=== PATIENT | male | born 1965 | race Caucasian/White ===

== ENCOUNTER 2024-08-09 19:18 | Emergency (ER) | payer OTHER, SELFPAY ==
[2024-08-09] VITALS (14 sets, daily range): BP systolic 98–127; BP diastolic 56–86; PULSE 66–76; RESP 12–22; TEMP 37.7; O2SAT 95–97
--- NOTE | ~2024-08-09 | CT_ITS ---
History: Increased weakness and slurred speech with history of CVA PROCEDURE: CT head without contrast. COMPARISON: None TECHNIQUE: Axial imaging of the head performed from the skull base to the vertex without IV contrast. Sagittal a nd coronal reformations obtained. Examination is markedly limited by motion artifact DLP: 1362 mGy-cm FINDINGS: Encephalomalacia and gliosis is identified within the left cerebral hemisphere with ex vacuo dilatati on of the left lateral ventricle. There is no mass, mass effect or midline shift. There is no abnormal extra-axial fluid collection or intracranial hemorrhage. Mucoperiosteal thickening within the bilateral maxillary, ethmoid and sphenoid sinuses. 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 No acute displaced fractures within the overlying cranium. Impression: No acute intracranial hemorrhage or suspicious mass effect. Evidence of prior cerebral infarction, as detailed above. Reviewed, dictated and finalized at location A. CUTTER Impression: No acute intracranial hemorrhage or suspicious mass effect. Evidence of prior cerebral infarction, as detailed above.
--- NOTE | ~2024-08-09 | CT_ITS ---
CTA brain carotid Ordering provider: Maury Connelly History: . Worsened R sided weakness. Hx of prior cva . Comparison: None. Technique: CT angiogram head and neck was performed following timed intravenous injection of contrast . Thin slice axial images and reformatted coronal images were obtained. Three dimensional reformatted images of the brain were also obtained using a [employer] workstation. DLP: 1161 mGy-cm FINDINGS: HEAD: --RIGHT SIDED ANTERIOR AND MIDDLE CEREBRAL ARTERIES AND BRANCHES: Normal caliber and contour. LEFT-SIDED ANTERIOR AND MIDDLE CEREBRAL ARTERIES AND BRANCHES: Asymmetrically smaller than the right, consistent with patient's history of prior cerebral infarction. --INTERNAL CAROTID ARTERIES: Limited visualization secondary to significant motion artifact. --BASILAR ARTERY AND BRANCHES: Limited visualization secondary to motion artifact --POSTERIOR CEREBRAL ARTERIES: Limited visualization secondary to motion artifact --POSTERIOR COMMUNICATING ARTERIES: Small in caliber but patent bilaterally --ANEURYSM: None visualized. --BRAIN: Please refer to report of CT head performed the same day. --BONES AND SUPERFICIAL SOFT TISSUES: Please refer to report of CT head performed the same day. --PARANASAL SINUSES AND MASTOIDS: Please refer to report of CT head done the same day. NECK: --RIGHT CERVICAL CAROTID SYSTEM: Mild atheromatous disease of the carotid bulb and proximal internal carotid artery without significant stenosis. Percent stenosis per NASCET criteria is 0%. No carotid dissection. --LEFT CERVICAL CAROTID SYSTEM: Just distal to the carotid bulb is complete occlusion of the left int ernal carotid artery. Only thready collateralization is appreciated. No flow is identified within the carotid siphon, but small vessel reconstitution is visualized within the [place] (as descri bed above). Percent stenosis per NASCET criteria is 100%. --VERTEBRAL ARTERIES: Patent. Normal caliber and contour. --VISUALIZED AORTIC ARCH AND BRANCHING VESSELS: Mild atheromatous disease but no significant stenosis . --SOFT TISSUES: Unremarkable --CERVICAL SPINE: Age advanced degenerative disease. IMPRESSION: Occlusion of the left internal carotid artery just distal to the carotid bulb without a carotid ring sign, which would denote an acute occlusion. [place] is patent, with asymmetrically smaller vasculature on the left in comparison to the right. These findings were discussed with Dr. Connelly at 9:00 PM on 08/09/2024 Reviewed, dictated and finalized at location A. ER MACHINE OPERATOR IMPRESSION: Occlusion of the left internal carotid artery just distal to the carotid bulb w ithout a carotid ring sign, which would denote an acute occlusion. [place] is patent, with asymmetrically smaller vasculature on the left in comparison to the right. These findings were discussed with Dr. Connelly at 9:00 PM on 08/09/2024
--- NOTE | ~2024-08-09 | XR_ITS ---
CHEST RADIOGRAPH CLINICAL HISTORY: sob, cough, hx cva . COMPARISON: 06/19/2015 TECHNIQUE: Single portable view of the chest. FINDINGS The cardiomediastinal silhouette is partially obscured. Hazy opacification of the left hemidiaphragm suggesting a small left-sided pleural effusion The remainder of the lungs are clear IMPRESSION: Left-sided pleural effusion without focal infiltrate. Reviewed, dictated and finalized at location A. MATIC THREAD WINDER
--- NOTE | 2024-08-09 19:33 | ECG_ITS ---
Test Date: 2024-08-09 19:25:11 Measurements Intervals [place] Rate: 71 P: 52 AR: 166 QRS: -5 QRSD: 108 T: 51 QT: 398 QTc: 435 Interpretive Statements SINUS RHYTHM BASELINE WANDER- AVR, AVL, AVF, V4-V5 NORMAL ECG No previous ECG available for comparison Electronically Signed On 08-10-2024 06:23:40 INFORMATION AND REFERRAL DIRECTOR by Bernard Leyva D.O.
[2024-08-09 19:42] LABS: Basophils Percent Auto 0.3 % (0.2-1.2); Eosinophils Absolute Auto 0.2 K/mm3 (0-0.3); Eosinophils Percent Auto 2.8 % (0-4.4); Hemoglobin 14.6 g/dL (14.0-18.0); Immature Granulocyte Absolute 0.02 K/mm3 (0.00-0.031); Immature Granulocyte Percent A 0.3 % (0-0.5); Lymphocytes Absolute Auto 1.44 K/mm3 (0.9-3.2); Lymphocytes Percent Auto 20.4 % (18.3-44.2); Mean Corpuscular HGB Conc 33.2 g/dl (32-36); Mean Corpuscular Hemoglobin 28.9 pg (26-34); Mean Platelet Volume 10.6 fl (7.4-10.4); Monocytes Absolute Auto 0.4 K/mm3 (0.1-0.6); Monocytes Percent Auto 5.1 % (2.6-8.5); Neutrophils Percent Auto 71.1 % (45.5-73.1); Platelet Count Result 195 k/mm3 (150-375); Red Blood Count 5.06 M/mm3 (4.6-6.20); Red Cell Distribution Width 13.1 % (11.5-14.5); White Blood Count 7.1 K/mm3 (4.5-10.0)
[2024-08-09 19:50] LABS: Glucose Point of Care 126 mg/dl (65-105)
[2024-08-09 19:53] LABS: INR 0.9; Prothrombin Time 13.1 Seconds (11.1-14.7)
[2024-08-09 19:54] LABS: Partial Thromboplastin Time 28.2 Seconds (22.3-36.8)
[2024-08-09 20:01] LABS: Alanine Aminotransferase 24 U/L (6-50); Albumin Level 3.7 g/dL (3.5-5.1); Alkaline Phosphatase 96 U/L (38-126); Anion Gap 10 mmol/L (4-12); Aspartate Amino Transferase 31 U/L (17-59); Bilirubin,Total 0.9 mg/dL (0.2-1.3); Blood Urea Nitrogen 17 mg/dL (9-20); Calcium 8.4 mg/dL (8.4-10.2); Carbon Dioxide 21 mmol/L (22-30); Chloride 113 mmol/L (98-107); Estimated CRCL calculation 82 ml/min; Estimated Glomerular Filt Rate > 60; Glucose 142 mg/dL (65-110); Potassium 3.8 mmol/L (3.4-5.0); Sodium 144 mmol/L (137-145)
[2024-08-09 20:20] LABS: Influenza A QL RT-PCR Positive (Negative); Influenza B QL RT-PCR Negative (Negative); RSV RNA, RT-PCR Negative (Negative); SARS-CoV-2 RNA PCR Negative (Negative)
[2024-08-09 20:35] LABS: Troponin I < 0.012 ng/mL (0.000-0.034)
[2024-08-09] MEDS: OSELTAMIVIR PHOSPHATE 75 MG CAPSULE PO (21:33)
[2024-08-09] MEDS: ACETAMINOPHEN 500 MG TABLET 1000 MG PO (21:33)
[2024-08-09] MEDS: SODIUM CHLORIDE 0.9% IV 1,000 ML 999 ML IV CONT (21:33)
--- NOTE | 2024-08-09 22:17 | ED.NEUROSD ---
HPI - Neuro Symptoms/Deficit General Chief Complaint: Suspected CVA Stated Complaint: felt like was having a stroke normal now Time Seen by Provider: 08/09/24 19:37 History of Present Illness HPI Narrative: This is a 59-year-old male with history of CVA with right-sided paralysis presenting for generalized weakness. Patient developed cold symptoms yesterday. Today he felt globally weak and told staff that he thought he was having another stroke. They then sent him to the hospital for evaluation. On evaluation now patient says his strength is improved but he does have cold symptoms. There has been a flu outbreak in his retirement. He denies fevers chest pain, abdominal pain, nausea vomiting diarrhea. he endorses some shortness of breath. Related Data Allergies Allergy/AdvReac Type Severity Reaction Status Date / Time No Known Allergies Allergy Mild Verified 08/08/16 16:34 Exam Narrative: APPEARANCE: No apparent distress. Head: atraumatic. EYES: EOMI, NOSE: Atraumatic NECK: Trachea midline RESPIRATORY: No increased rate of breathing clear to auscultation CARDIOVASCULAR: RRR, no peripheral edema ABDOMINAL: Non-distended soft nontender MUSCULOSKELETAl: No obvious deformities NEURO: Alert. Flaccid paralysis of the right arm and right leg, left side is normal SKIN:: Warm, dry. Normal color PSYCHIATRIC: Normal affect Course Vital Signs Vital signs: Vital Signs Temperature 99.9 F H 08/09/24 19:19 Pulse Rate 74 08/09/24 19:19 Respiratory Rate 17 08/09/24 19:19 Blood Pressure 98/61 L 08/09/24 19:19 Pulse Oximetry 97 08/09/24 19:19 Oxygen Delivery Room Air 08/09/24 19:19 Temperature 99.9 F H 08/09/24 19:19 Pulse Rate 68 08/09/24 20:50 Respiratory Rate 16 08/09/24 20:50 Blood Pressure 126/86 08/09/24 20:50 Pulse Oximetry 97 08/09/24 20:50 Oxygen Delivery Room Air 08/09/24 20:27 MDM - Neuro Symptoms/Deficit MDM Narrative Medical decision making narrative: -Course: 59-year-old male presenting with generalized weakness. 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 Patient's workup was positive for influenza. Rest was laboratory studies normal limits. His vital signs are stable. Patient given fluids, NSAIDs and a dose of Tamiflu. Discussed admission versus discharge the patient is comfortable going back to the retirement and returning his condition is to worsen. Discharged with return precautions. -DDX includes but is not limited to: CVA, influenza, sepsis UTI dehydration Lab Data 08/09/24 19:37 08/09/24 19:37 Labs: Lab Results 08/09/24 08/09/24 Range/Units 19:37 19:47 WBC 7.1 (4.5-10.0) K/mm3 RBC 5.06 (4.6-6.20) M/mm3 Hgb 14.6 (14.0-18.0) g/dL Hct 44.0 (42.0-52.0) % MCV 87.0 (80-100) fl MCH 28.9 (26-34) pg MCHC 33.2 (32-36) g/dl RDW 13.1 (11.5-14.5) % Plt Count 195 (150-375) k/mm3 MPV 10.6 H (7.4-10.4) fl Immature Gran % (Auto) 0.3 (0-0.5) % Neut % (Auto) 71.1 (45.5-73.1) % Lymph % (Auto) 20.4 (18.3-44.2) % Beckham % (Auto) 5.1 (2.6-8.5) % Eos % (Auto) 2.8 (0-4.4) % Baso % (Auto) 0.3 (0.2-1.2) % Lymph # (Auto) 1.44 (0.9-3.2) K/mm3 Beckham # (Auto) 0.4 (0.1-0.6) K/mm3 Eos # (Auto) 0.2 (0-0.3) K/mm3 Baso # (Auto) 0.0 (0.0-0.1) K/mm3 Abs Immat Gran (auto) 0.02 (0.00-0.031) K/mm3 Absolute Neuts (auto) 5.0 (1.3-6.7) K/mm3 Absolute Nucleated RBC 0.000 (0.0-0.012) K/mm3 Nucleated RBC % 0.0 (0.0-0.2) % PT 13.1 (11.1-14.7) Seconds INR 0.9 APTT 28.2 (22.3-36.8) Seconds Sodium 144 (137-145) mmol/L Potassium 3.8 (3.4-5.0) mmol/L Chloride 113 H (98-107) mmol/L Carbon Dioxide 21 L (22-30) mmol/L Anion Gap 10 (4-12) mmol/L BUN 17 (9-20) mg/dL Creatinine 0.92 (0.7-1.3) mg/dL Estim Creat Clear Calc 82 ml/min Estimated GFR > 60 (59 - ) Glucose 142 H (65-110) mg/dL POC Capillary Glucose 126 H (65-105) mg/dl Calcium 8.4 (8.4-10.2) mg/dL Total Bilirubin 0.9 (0.2-1.3) mg/dL AST 31 (17-59) U/L ALT 24 (6-50) U/L Alkaline Phosphatase 96 (38-126) U/L Troponin I < 0.012 (0.000-0.034) ng/mL Total Protein 7.0 (6.3-8.2) g/dL Albumin 3.7 (3.5-5.1) g/dL Influenza A (RT-PCR) Positive A (Negative) Influenza B (RT-PCR) Negative (Negative) RSV (RT-PCR) Negative (Negative) SARS-CoV-2 RNA (RT-PCR) Negative (Negative) Discharge Plan Discharge Clinical Impression: Influenza A Patient Disposition: Home, Self-Care Condition: Stable Instructions: Antibiotic Form, Influenza (DC) Additional Instructions: You were seen in the emergency department for weakness. You have the flu. Please take Tamiflu as instructed. Use Tylenol for fevers or body aches. If you develop shortness of breath or your condition is worsening please return to the ER for evaluation. Patient Language: [place]ian Prescriptions: New oseltamivir [Tamiflu] 75 mg capsule 75 mg PO Q12H 5 Days Qty: 10 0RF Follow-up/Referrals: PHYSICIAN,SLICER MACHINE OPERATOR [Primary Care Provider] -
== END 2024-08-09 22:50 ==
PROVIDERS: Emergency Provider Emergency Medicine
DX: J10.1 Influenza due to other identified influenza virus with other respiratory manifestations (principal); Z20.822 Contact with and (suspected) exposure to COVID-19; I69.951 Hemiplegia and hemiparesis following unspecified cerebrovascular disease affecting right dominant side
CPT/HCPCS: 36415; 70450; 70496; 70498; 71045; 80053; 82948; 84484; 85025; 85610; 85730; 87637; 93005; 96360; 99284; A9270; J7030; Q9967